=== PATIENT | female | born 1990 | race Caucasian/White ===

== ENCOUNTER 2017-09-28 13:15 | Inpatient (IN) | payer BC ==
[2017-09-28] MEDS ORDERED: Sodium Chloride 0.9% 100 ML ONE (13:32)
[2017-09-28] MEDS: Lactated Ringers 1,000 ML IV SCH ×3 (13:40→15:18)
[2017-09-28] MEDS ORDERED: fentaNYL 100 MCG/2 ML SDV EPIDUR PRN (13:56)
[2017-09-28] MEDS ORDERED: diphenhydrAMINE 50 MG/ML SDV IVPUSH PRN (13:56)
[2017-09-28] MEDS ORDERED: ePHEDrine 50 MG/ML SDV IVPUSH PRN (13:56)
[2017-09-28] MEDS ORDERED: Bupivacaine/fentaNYL/NS 100 ML Bag EPIDUR SCH (14:00)
[2017-09-28] MEDS ORDERED: Nalbuphine 20 MG/1 ML Amp IVPUSH PRN (14:02)
[2017-09-28] MEDS ORDERED: Sodium Chloride 0.9% 10 ML Syringe FLUSH PRN (14:02)
[2017-09-28] MEDS ORDERED: Lidocaine 1% 50 ML MDV INJECT ONE (14:02)
--- NOTE | 2017-09-28 14:13 | PCM.LDHP ---
L&D History of Present Illness - General Date of Service: 09/28/17 Admit Problem/Dx: Patient Status Order with Admit Dx/Problem 09/28/17 14:02 Patient Status [ADT] Routine Admission Diagnosis/Problem Admission Diagnosis/Problem Normal 09/28/17 14:06 38-6/7 week IUP, active labor, advanced cervical dilation of 7 cm. Source of Information: Patient History Limitations: Reports: No Limitations - History of Present Illness Introduction:: Latonia is a 27-year-old 1 para 0 white female is admitted in active labor with contractions occurring every 3-4 minutes. JOSEY is 10/06/2017 placer presently at 38-6/7 weeks gestational age. JOSEY is determined by an ultrasound done at 8-2/7 weeks on 02/26/2017 and supported by another ultrasound done on 06/08. Patient started having contractions processing at 1030 hrs. today and progressed to the frequency stated above. They're very intense. Cervix is 7 cm, 90% effaced, -2 station, mid position, bulging bag of kirk, cephalic presentation, very soft. She is group B strep positive and IV has been started, antibiotics are initiated. MANAGER PACU history: 1 para 0, JOSEY 10/06/2017. Patient's had a relatively unremarkable course. Her first visit was on 02/26/2017 at 8-2/7 weeks gestational age. She was seen on a regular basis throughout the program and was a participant in the centering program for weight gain was from 152 pounds up to 172.6 pounds. Vital signs were stable throughout the course and fundal height growth was appropriate. Patient group B strep positive culture results and urine. Her 's blood is O+. Patient's blood is A-. She was a RhoGAM candidate received RhoGAM on 07/16/2017. She is hypothyroid and has been on thyroid replacement throughout , and is clinically euthyroid at this time. laboratory testing shows blood to be A- with a negative antibody screen. First hemoglobin is 12.5 g or deciliter. Platelets 177,000. Pap smear was normal. Rubella titer shows immunity. RPR is nonreactive. Committee and gonorrhea assays were both negative. Her TSH at first visit was 1.443 mU/L. This is normal limits. Her second trimester labs showed hemoglobin 12.7 and platelet count 153,000. Diabetic screening test was normal at 76. Allergies: 1. Bee stings which cause swelling 2. Patient is lactose intolerant. 3. Gluten intolerance 4. No known drug allergies. Medications: 1. Levothyroxine sodium 75 g daily 2. vitamins daily Past medical history: 1. Lactose intolerant, gluten intolerant. Past surgical history: 1. Tonsillectomy 2012. 2. Oral surgery 2006. Family history: Mother and father are alive and well. One brother with allergies. Maternal grandmother is alive and well. Maternal grandfather is alive with some heart disease. Paternal grandmother with heart disease and rheumatoid arthritis. Paternal grandfather alive and well but has had prostate cancer. No bleeding, clotting, or anesthesia problems noted in the family. View of systems: Skin: Negative Cardiovascular: No chest pain or exercise tolerance Respiratory: No shortness of breath or infectious symptoms Breasts: Changes associated with only. Patient plans to nurse. GI: Negative : Changes cystic-appearing C, labor pains as described above Musculoskeletal: Occasional edema Neurological: Negative Physical exam: Gen. patient is well-developed well-nourished, pleasant female stated age in no acute distress other than contraction discomfort. Skin is warm dry without lesions. HEENT, neck and back the normal limits. Lungs are clear with good breath sounds in all lung spence. Cardiovascular exam shows regular rate and rhythm without murmurs. Breast exam is deferred at this time. First visit and found to be normal. Abdomen is protuberant with fundal height 39 cm, baby in vertex presentation by Mark murmurs. The paracervical exam as above Extremities and neurological exam grossly within normal limits. - Related Data Allergies/Adverse Reactions: Allergies Allergy/AdvReac Type Severity Reaction Status Date / Time lactose AdvReac Stomach Verified 09/28/17 13:57 Ache Home Medications: Home Meds Biotin 1 mg PO DAILY 09/23/14 [History] Levothyroxine Sodium [Levothyroxine Sodium] 75 mcg PO DAILY 09/23/14 [History] Multivitamin [Multi Vitamin Daily] 1 tab PO DAILY 09/23/14 [History] Norethindrone-Ethinyl Estrad [Cyclafem 1-35-28 Tablet] 1 tab PO BEDTIME [History] Hydrocodone/Acetaminophen [Hydrocodone-Acetaminophen Soln] 15 - 30 ml PO Q4H PRN #480 solution 09/25/14 [Rx] Social & Family History - Tobacco Use Smoking Status *Q: Never Smoker Second Hand Smoke Exposure: No - Alcohol Use Days Per Week of Alcohol Use: 0 Number of Drinks Per Day: 0 Total Drinks Per Week: 0 - Recreational Drug Use Recreational Drug Use: No Drug Use in Last 12 Months: No H&P Review of Systems - Review of Systems: Review Of Systems: See Below L&D Exam - Exam Exam: See Below - Patient Data Lab Results Last 24 hrs: Laboratory Results - last 24 hr 09/28/17 Range/Units 13:40 WBC 19.83 H (3.98-10.04) K/mm3 RBC 3.99 (3.98-5.22) M/mm3 Hgb 13.2 (11.2-15.7) gm/L Hct 37.5 (34.1-44.9) % MCV 94.0 (79.4-94.8) fl MCH 33.1 H (25.6-32.2) pg MCHC 35.2 (32.2-35.5) g/dl RDW Std Deviation 44.0 (36.4-46.3) fL Plt Count 200 (182-369) K/mm3 MPV 10.6 (9.4-12.3) fl Neut % (Auto) 82.5 H (34.0-71.1) % Lymph % (Auto) 10.1 L (19.3-51.7) % [place] % (Auto) 6.6 (4.7-12.5) % Eos % (Auto) 0.1 L (0.7-5.8) Baso % (Auto) 0.1 (0.1-1.2) % Neut # (Auto) 16.38 H (1.56-6.13) K/mm3 Lymph # (Auto) 2.01 (1.18-3.74) K/mm3 [place] # (Auto) 1.31 H (0.24-0.36) K/mm3 Eos # (Auto) 0.01 L (0.04-0.36) K/mm3 Baso # (Auto) 0.01 (0.01-0.08) K/mm3 Result Diagrams: 09/28/17 13:40 Problem List Initiated/Reviewed/Updated: Yes Orders Last 24hrs: Active Orders 24 hr Category Date Time Status Patient Status [ADT] Routine ADT 09/28/17 14:02 Ordered Activity as Tolerated [RC] PFP Care 09/28/17 14:02 Ordered Communication Order [RC] ASDIRECTED Care 09/28/17 14:02 Ordered Heart Tones [RC] ASDIRECTED Care 09/28/17 14:03 Ordered Notify Provider [RC] ASDIRECTED Care 09/28/17 13:56 Active Notify Provider [RC] PFP Care 09/28/17 14:02 Ordered Notify Provider [RC] PRN Care 09/28/17 14:02 Ordered Peripheral IV Care [RC] . DIRECTED Care 09/28/17 14:03 Ordered Pump Management, Intrathecal [RC] ASDIRECTED Care 09/28/17 14:03 Ordered Vital Signs [RC] PER UNIT ROUTINE Care 09/28/17 14:02 Ordered Regular Diet [DIET] Diet 09/28/17 Lunch Ordered CBC WITH AUTO DIFF [HEME] Stat Lab 09/28/17 13:40 Results Ampicillin 1 gm Med 09/28/17 14:15 Ordered Sodium Chloride 0.9% [Normal Saline] 100 ml IV Q4H Ampicillin 2 gm Med 09/28/17 14:02 Ordered Sodium Chloride 0.9% [Normal Saline] 100 ml IV ONETIME Bupivacaine/fentaNYL/NS [fentaNYL/Bupivacaine/NS 2 MCG- Med 09/28/17 14:00 Ordered 0.125% 100 ML] 100 ml EPIDUR ASDIRECTED Lactated Ringers [Ringers, Lactated] 1,000 ml Med 09/28/17 14:15 Ordered IV ASDIRECTED Levothyroxine Med 09/29/17 09:00 Ordered 75 mcg PO DAILY Lidocaine 1% [Xylocaine 1%] Med 09/28/17 14:02 Once 10 ml INJECT ONETIME ONE Nalbuphine [Nubain] Med 09/28/17 14:02 Ordered 10 mg IVPUSH Q2H PRN Sodium Chloride 0.9% [Saline Flush] Med 09/28/17 14:02 Ordered 10 ml FLUSH ASDIRECTED PRN diphenhydrAMINE [Benadryl] Med 09/28/17 13:56 Ordered 25 mg IVPUSH Q6H PRN ePHEDrine [ePHEDrine Sulfate] Med 09/28/17 13:56 Ordered 5 mg IVPUSH ASDIRECTED PRN fentaNYL [Sublimaze] Med 09/28/17 13:56 Ordered 100 mcg EPIDUR Q3H PRN Electronic Heart Tones Ext w TOCO [WOMSER] Oth 09/28/17 14:02 Ordered Routine Electronic Heart Tones Internal [WOMSER] Per Unit Oth 09/28/17 14:02 Ordered Routine Peripheral IV Insertion Adult [OM.PC] Routine Oth 09/28/17 14:02 Ordered Resuscitation Status Routine Resus Stat 09/28/17 14:02 Ordered Medication Orders Diphenhydramine HCl (Benadryl) 25 mg IVPUSH Q6H PRN PRN Reason: pruritis Ephedrine Sulfate (Ephedrine Sulfate) 5 mg IVPUSH ASDIRECTED PRN PRN Reason: Hypotension Fentanyl (Sublimaze) 100 mcg EPIDUR Q3H PRN PRN Reason: Pain Fentanyl/Bupivacaine HCl (Fentanyl/Bupivacaine/Ns 2 Mcg-0.125% 100 Ml) 100 ml EPIDUR ASDIRECTED YOSSI Levothyroxine Sodium (Levothyroxine) 75 mcg PO DAILY YOSSI Assessment/Plan Comment:: Assessment: 1. 38-6/7 week intrauterine , active labor with advanced cervical dilation. 2. Group B strep screen positive. Antibiotics have been ordered 3. Patient desires epidural in labor and delivery 4. Patient plans to breast-feed 5. Patient is hypothyroid but is presently on levothyroxine and clinically euthyroid with normal labs during the . Plan: 1. Anticipate normal spontaneous vaginal delivery. 2. Epidural when necessary 3. CBC 4. Support breast-feeding plans.
--- NOTE | 2017-09-28 14:23 | PCM.PREANE ---
Preanesthetic Assessment - Anesthesia/Transfusion/Family Hx Anesthesia History: Prior Anesthesia Without Reaction Family History of Anesthesia Reaction: No Transfusion History: No Prior Transfusion(s) - Review of Systems General: No Symptoms Pulmonary: No Symptoms, Cough (sick over anneliese) Cardiovascular: No Symptoms Gastrointestinal: No Symptoms Neurological: No Symptoms Other: Reports: Thyroid Problems - Physical Assessment Pulse: 71 O2 Sat by Pulse Oximetry: 99 Respiratory Rate: 16 Blood Pressure: 116/75 Height: 5 ft 9 in Weight: 78.653 kg ASA Class: 2 Mental Status: Alert & Oriented x3 Airway Class: Mallampati = 1 Dentition: Reports: Normal Dentition Thyro-Mental Finger Breadths: 3 Mouth Opening Finger Breadths: 3 ROM/Head Extension: Full Lungs: Clear to Auscultation, Normal Respiratory Effort Cardiovascular: Regular Rate, Regular Rhythm - Lab Values: Laboratory Last Values WBC 19.83 K/mm3 (3.98-10.04) H 09/28/17 13:40 RBC 3.99 M/mm3 (3.98-5.22) 09/28/17 13:40 Hgb 13.2 gm/L (11.2-15.7) 09/28/17 13:40 Hct 37.5 % (34.1-44.9) 09/28/17 13:40 MCV 94.0 fl (79.4-94.8) 09/28/17 13:40 MCH 33.1 pg (25.6-32.2) H 09/28/17 13:40 MCHC 35.2 g/dl (32.2-35.5) 09/28/17 13:40 RDW Std Deviation 44.0 fL (36.4-46.3) 09/28/17 13:40 Plt Count 200 K/mm3 (182-369) 09/28/17 13:40 MPV 10.6 fl (9.4-12.3) 09/28/17 13:40 Neut % (Auto) 82.5 % (34.0-71.1) H 09/28/17 13:40 Lymph % (Auto) 10.1 % (19.3-51.7) L 09/28/17 13:40 [place] % (Auto) 6.6 % (4.7-12.5) 09/28/17 13:40 Eos % (Auto) 0.1 (0.7-5.8) L 09/28/17 13:40 Baso % (Auto) 0.1 % (0.1-1.2) 09/28/17 13:40 Neut # (Auto) 16.38 K/mm3 (1.56-6.13) H 09/28/17 13:40 Lymph # (Auto) 2.01 K/mm3 (1.18-3.74) 09/28/17 13:40 [place] # (Auto) 1.31 K/mm3 (0.24-0.36) H 09/28/17 13:40 Eos # (Auto) 0.01 K/mm3 (0.04-0.36) L 09/28/17 13:40 Baso # (Auto) 0.01 K/mm3 (0.01-0.08) 09/28/17 13:40 - Allergies Allergies/Adverse Reactions: Allergies Allergy/AdvReac Type Severity Reaction Status Date / Time lactose AdvReac Stomach Verified 09/28/17 13:57 Ache - Blood Blood Available: No - Acknowledgements Anesthesia Type Planned: Epidural Pt an Appropriate Candidate for the Planned Anesthesia: Yes Alternatives and Risks of Anesthesia Discussed w Pt/Guardian: Yes Pt/Guardian Understands and Agrees with Anesthesia Plan: Yes PreAnesthesia Questionnaire Cardiovascular History: Reports: None Respiratory History: Reports: None Gastrointestinal History: Reports: None : 1 (38.6) Para: 0 Oncologic (Cancer) History: Reports: None - Past Surgical History HEENT Surgical History: Reports: Oral Surgery, Tonsillectomy - SUBSTANCE USE Smoking Status *Q: Never Smoker Tobacco Use Within Last Twelve Months: No Second Hand Smoke Exposure: No Days Per Week of Alcohol Use: 0 Number of Drinks Per Day: 0 Total Drinks Per Week: 0 Recreational Drug Use History: No - HOME MEDS Home Medications: Home Meds Biotin 1 mg PO DAILY 09/23/14 [History] Levothyroxine Sodium [Levothyroxine Sodium] 75 mcg PO DAILY 09/23/14 [History] Multivitamin [Multi Vitamin Daily] 1 tab PO DAILY 09/23/14 [History] Norethindrone-Ethinyl Estrad [Cyclafem 1-35-28 Tablet] 1 tab PO BEDTIME [History] Hydrocodone/Acetaminophen [Hydrocodone-Acetaminophen Soln] 15 - 30 ml PO Q4H PRN #480 solution 09/25/14 [Rx] - CURRENT (IN HOUSE) MEDS Current Meds: Current Medications Diphenhydramine HCl (Benadryl) 25 mg IVPUSH Q6H PRN PRN Reason: pruritis Ephedrine Sulfate (Ephedrine Sulfate) 5 mg IVPUSH ASDIRECTED PRN PRN Reason: Hypotension Fentanyl (Sublimaze) 100 mcg EPIDUR Q3H PRN PRN Reason: Pain Fentanyl/Bupivacaine HCl (Fentanyl/Bupivacaine/Ns 2 Mcg-0.125% 100 Ml) 100 ml EPIDUR ASDIRECTED YOSSI Ampicillin Sodium 2 gm/ Sodium (Chloride) 100 mls @ 200 mls/hr IV ONETIME ONE Stop: 09/28/17 14:31 Ampicillin Sodium 1 gm/ Sodium (Chloride) 100 mls @ 200 mls/hr IV Q4H YOSSI Lactated Ringer's (Ringers, Lactated) 1,000 mls @ 100 mls/hr IV ASDIRECTED YOSSI Levothyroxine Sodium (Levothyroxine) 75 mcg PO DAILY YOSSI Lidocaine HCl (Xylocaine 1%) 10 ml INJECT ONETIME ONE Stop: 09/28/17 14:03 Nalbuphine HCl (Nubain) 10 mg IVPUSH Q2H PRN PRN Reason: Pain (moderate 4-6) Sodium Chloride (Saline Flush) 10 ml FLUSH ASDIRECTED PRN PRN Reason: Keep Vein Open Discontinued Medications Sodium Chloride (Normal Saline) Confirm Administered Dose 100 mls @ as directed .ROUTE .STK-MED ONE Stop: 09/28/17 13:33
[2017-09-28] MEDS ORDERED: Ampicillin 2 GM in Sodium Chloride 0.9% 100 ML IV ONE (14:30)
[2017-09-28] MEDS ORDERED: Oxytocin/Lactated Ringers 10 UNIT/1,000 ML BAG IV ONE ×2 (15:03→15:04)
[2017-09-28] MEDS: Ampicillin 1 GM in Sodium Chloride 0.9% 100 ML IV SCH ×2 (17:12→19:46)
--- NOTE | 2017-09-28 19:27 | PCM.SN ---
- Free Text/Narrative Note: Latonia is a 27 y/o white female who was admitted on the afternoon of 09/28/17 for active labor. She progressed quickly to complete dx dilation. She delivered a 3460 gm (7# 10 oz) male at 1817 hours. Lenth was 21.5 inches and scores were 8/9. The baby delivered in a OP position via vacuum extraction assistance due to severe variable FHR decelerations. She had a second degree laceration with was repaired with 3-0 monocryl suture. Epidural was used for analgesia in labor and for anesthesia for the laceration repair. Cord blood was collected The placenta delivered in a Ortega presentation, intact and complete. It was discarded per patient choice. EBL:100 cc. Condition: good. Patient is .
[2017-09-28] MEDS ORDERED: Lanolin 100% Cream 7 GM Tube TOP PRN (19:39)
[2017-09-28] MEDS ORDERED: Benzocaine/Menthol 20%-0.5% Spray 56 GM Canister TOP PRN (19:39)
[2017-09-28] MEDS ORDERED: Witch Hazel Medicated Pads 100/Jar TOP PRN (19:39)
[2017-09-28] MEDS ORDERED: Acetaminophen 325 MG Tab PO PRN (19:39)
[2017-09-28] MEDS ORDERED: Docusate Sodium 100 MG Cap PO PRN (19:39)
[2017-09-28] MEDS ORDERED: Oxytocin/Lactated Ringers 10 UNIT/1,000 ML BAG IV SCH (20:00)
[2017-09-28] MEDS ORDERED: Bupivacaine 0.25% 10 ML SDV ONE (22:22)
[2017-09-29] MEDS: Ibuprofen 600 MG Tab PO PRN ×4 (00:36→19:13)
[2017-09-29] MEDS: Levothyroxine 75 MCG Tab PO SCH (06:48)
[2017-09-29] MEDS: Prenatal Multivitamin with Calcium/Folic Acid/Iron Tab PO SCH (09:09)
--- NOTE | 2017-09-29 09:50 | PCM.SN ---
- Free Text/Narrative Note: Postterm day one: Patient is ambulating well, has minimal lochia, is nursing without concerns. She is voided well. Patient is afebrile, vital signs stable. Abdomen is soft, nontender with uterus at umbilicus and nontender. Extremities show trace edema bilaterally in lower extremities but no signs of DVT. Hemoglobin, platelets and white blood count are within normal limits for the period Assessment/plan: Post day 1 normal recovery. Patient doing well. Home tomorrow.
[2017-09-30] MEDS: Ibuprofen 600 MG Tab PO PRN (06:59)
[2017-09-30] MEDS: Levothyroxine 75 MCG Tab PO SCH (10:03)
[2017-09-30] MEDS: Prenatal Multivitamin with Calcium/Folic Acid/Iron Tab PO SCH (10:05)
--- NOTE | 2017-09-30 11:04 | PCM.DCSUM1 ---
Discharge Summary - Hospital Course Free Text/Narrative:: Latonia is a 27 y/o white female who was admitted on the afternoon of 09/28/17 for active labor. She progressed quickly to complete dx dilation. She delivered a 3460 gm (7# 10 oz) male infant at 1817 hours. Lenth was 21.5 inches and scores were 8/9. The baby delivered in a OP position via vacuum extraction assistance due to severe variable FHR decelerations. She had a second degree laceration with was repaired with 3-0 monocryl suture. Epidural was used for analgesia in labor and for anesthesia for the laceration repair. Cord blood was collected The placenta delivered in a Ortega presentation, intact and complete. It was discarded per patient choice. EBL:100 cc. Condition: good. Patient is . Postterm patient is done very well. She is voiding without concerns. She is ambulating well and nursing without problems. Her vital signs stable. Lochia is minimal. She is desiring to be discharged home. - Discharge Data Discharge Date: 09/30/17 Discharge Disposition: Home, Self-Care 01 Condition: Good - Patient Instructions Diet: Regular Diet as Tolerated (High-fiber, nursing diet with increased calories and calcium as recommended.) Activity: As Tolerated (No intercourse or tampons until bleeding resolves.) Driving: May Drive Today Showering/Bathing: May Shower Showering/Bathing, Other: May take a bath Notify Provider of: Fever, Increased Pain, Swelling and Redness, Nausea and/or Vomiting - Discharge Plan Home Medications: Home Meds Levothyroxine Sodium 1 tab PO DAILY 09/23/14 [History] Ibuprofen [IJD: Ibuprofen] 600 mg PO Q4H PRN tablet 09/30/17 [Rx] Vit with Ca/FA/Iron [ Plus Iron] 1 each PO DAILY tablet [Rx] Yamil Barnes [Tucks] 1 pad TOP ASDIRECTED PRN pad 09/30/17 [Rx] Patient Handouts: Home Care Instructions for Mom, Challenges and Solutions Referrals: Jim Viramontes MD [Primary Care Provider] - (follow up with Dr Viramontes in 2 weeks. Please call for appointments. ) - Discharge Summary/Plan Comment DC Time >30 min.: No Discharge Summary/Plan Comment: Discharge instructions: 1. Discharge home 2. Diet, activity and follow-up discussed with patient. Recommend nursing diet with increased calories and calcium. 3. Precautions given concern increased pain, bleeding, temperature, signs/ symptoms of DVT/PE. 4. Medications per home medication was printed, discussed with and given to the patient. 5. Return to clinic-Dr. Viramontes[facility] in 2 weeks. Diagnosis: Term -delivered Condition: Good - Patient Data Vitals - Most Recent: Last Vital Signs Temp 36.4 C 09/30/17 00:56 Pulse 91 09/30/17 00:56 Resp 18 09/30/17 00:56 BP 105/68 09/30/17 00:56 Pulse Ox 98 09/30/17 00:56 Weight - Most Recent: 78.653 kg I&O - Last 24 hours: Intake & Output 09/29/17 09/30/17 09/30/17 22:59 06:59 14:59 Intake Total 120 Balance 120 Med Orders - Current: Current Medications Acetaminophen (Tylenol) 650 mg PO Q4H PRN PRN Reason: mild pain or fever Benzocaine/Menthol (Dermoplast Pain Relief [place]) 0 gm TOP ASDIRECTED PRN PRN Reason: Perineal Comfort Measure Last Admin: 09/29/17 00:51 Dose: 1 canister Docusate Sodium (Colace) 100 mg PO BID PRN PRN Reason: Constipation Emollient Ointment (Lansinoh Hpa) 0 gm TOP ASDIRECTED PRN PRN Reason: Sore Nipples Last Admin: 09/30/17 10:17 Dose: 1 tube Oxytocin/Lactated Ringer's (Pitocin In Lr 10 Units/1,000 Ml) 10 unit in 1,000 mls @ 3,000 mls/hr IV ASDIRECTED YOSSI; 500 MUNITS/MIN PRN Reason: Protocol Ibuprofen (Motrin) 600 mg PO Q4H PRN PRN Reason: Mild pain or fever Last Admin: 09/30/17 06:59 Dose: 600 mg Levothyroxine Sodium (Levothyroxine) 75 mcg PO ACBREAKFAST [facility] Last Admin: 09/30/17 10:03 Dose: Not Given Prenat Multivit/[place]/Iron/Folic Ac ( Plus Iron) 1 each PO DAILY [facility] Last Admin: 09/30/17 10:05 Dose: Not Given Witch Molly (Tucks) 1 pad TOP ASDIRECTED PRN PRN Reason: Hemorrhoid pain Last Admin: 09/29/17 00:51 Dose: 1 canister Discontinued Medications Diphenhydramine HCl (Benadryl) 25 mg IVPUSH Q6H PRN PRN Reason: pruritis Ephedrine Sulfate (Ephedrine Sulfate) 5 mg IVPUSH ASDIRECTED PRN PRN Reason: Hypotension Fentanyl (Sublimaze) 100 mcg EPIDUR Q3H PRN PRN Reason: Pain Last Admin: 09/28/17 14:26 Dose: 100 mcg Fentanyl/Bupivacaine HCl (Fentanyl/Bupivacaine/Ns 2 Mcg-0.125% 100 Ml) 100 ml EPIDUR ASDIRECTED [facility] Last Admin: 09/28/17 14:24 Dose: 100 ml Sodium Chloride (Normal Saline) Confirm Administered Dose 100 mls @ as directed .ROUTE .STK-MED ONE Stop: 09/28/17 13:33 Last Admin: 09/28/17 16:35 Dose: Not Given Ampicillin Sodium 2 gm/ Sodium (Chloride) 100 mls @ 200 mls/hr IV ONETIME ONE Stop: 09/28/17 14:59 Last Admin: 09/28/17 13:40 Dose: 200 mls/hr Ampicillin Sodium 1 gm/ Sodium (Chloride) 100 mls @ 200 mls/hr IV Q4H [facility] Last Admin: 09/28/17 19:46 Dose: Not Given Lactated Ringer's (Ringers, Lactated) 1,000 mls @ 100 mls/hr IV ASDIRECTED [facility] Last Admin: 09/28/17 15:18 Dose: 500 mls/hr Oxytocin/Lactated Ringer's (Pitocin In Lr 10 Units/1,000 Ml) Confirm Administered Dose 10 unit in 1,000 mls @ as directed IV .STK-MED ONE Stop: 09/28/17 15:04 Last Admin: 09/28/17 16:35 Dose: Not Given Oxytocin/Lactated Ringer's (Pitocin In Lr 10 Units/1,000 Ml) Confirm Administered Dose 10 unit in 1,000 mls @ as directed IV .STK-MED ONE Stop: 09/28/17 15:05 Last Admin: 09/29/17 01:51 Dose: Not Given Lidocaine HCl (Xylocaine 1%) 10 ml INJECT ONETIME ONE Stop: 09/28/17 14:03 Last Admin: 09/28/17 19:46 Dose: Not Given Nalbuphine HCl (Nubain) 10 mg IVPUSH Q2H PRN PRN Reason: Pain (moderate 4-6) Sodium Chloride (Saline Flush) 10 ml FLUSH ASDIRECTED PRN PRN Reason: Keep Vein Open *Q Meaningful Use (DIS) - VTE *Q VTE Criteria *Q: - Stroke *Q Stroke Criteria *Q: - AMI *Q AMI Criteria *Q:
== END 2017-09-30 17:00 | disposition home or self-care (01) | DRG 560 ==
LOC: JD.OB 13:15 → JD.OBCHECK 13:15 → JD.OB 14:02 → OBSVTOIN 18:17
PROVIDERS: ADMIT Obstetrics & Gynecology; ATTEND Obstetrics & Gynecology
PROC: 10D07Z6 Extraction of Products of Conception, Vacuum, Via Natural or Artificial Opening (ICD-10-PCS; principal; 2017-09-28)
PROC: 0KQM0ZZ Repair Perineum Muscle, Open Approach (ICD-10-PCS; 2017-09-28)
PROC: 10907ZC Drainage of Amniotic Fluid, Therapeutic from Products of Conception, Via Natural or Artificial Opening (ICD-10-PCS; 2017-09-28)
PROC: 00HU33Z Insertion of Infusion Device into Spinal Canal, Percutaneous Approach (ICD-10-PCS; 2017-09-28)
PROC: 3E0R3BZ Introduction of Anesthetic Agent into Spinal Canal, Percutaneous Approach (ICD-10-PCS; 2017-09-28)
DX: O99.284 Endocrine, nutritional and metabolic diseases complicating childbirth (principal); E03.9 Hypothyroidism, unspecified; O99.824 Streptococcus B carrier state complicating childbirth; Z3A.39 39 weeks gestation of pregnancy; Z37.0 Single live birth; Z91.030 Bee allergy status; Z91.02 Food additives allergy status; Z91.011 Allergy to milk products; Z79.899 Other long term (current) drug therapy; O70.1 Second degree perineal laceration during delivery; O69.81X0 Labor and delivery complicated by cord around neck, without compression, not applicable or unspecified
CPT/HCPCS: 36415; 51701; 59300; 59409; 85025; 85027; 85461; 86850; 86900; 86901; A9270-GY; J0290; J2790; J3010; J7030; J7120

== ENCOUNTER 2020-02-05 08:23 | Inpatient (IN) | payer BC ==
[~2020-02-05 08:23] MED LIST: Bupivacaine 0.25% 10 ML SDV ONE
[2020-02-05] MEDS ORDERED: Lidocaine 1% 50 ML MDV INJECT ONE (08:30)
[2020-02-05] MEDS ORDERED: Oxytocin/Lactated Ringers 10 UNIT/1,000 ML BAG IV SCH ×2 (08:30→12:30)
[2020-02-05] MEDS ORDERED: Sodium Chloride 0.9% 10 ML Syringe FLUSH PRN (08:30)
[2020-02-05] MEDS ORDERED: Ondansetron 4 MG/2 ML SDV IVPUSH PRN (08:30)
[2020-02-05] MEDS ORDERED: Nalbuphine 10 MG/ML Syringe IVPUSH PRN (08:30)
[2020-02-05] MEDS ORDERED: Metoclopramide 10 MG/2 ML SDV IVPUSH ONE (08:36)
[2020-02-05] MEDS ORDERED: Citric Acid/Sodium Citrate Solution 30 ML Cup PO ONE (08:36)
[2020-02-05] MEDS: Lactated Ringers 1,000 ML IV SCH ×3 (08:54→11:38)
[2020-02-05] MEDS ORDERED: ePHEDrine 50 MG/ML SDV IVPUSH PRN (09:32)
[2020-02-05] MEDS ORDERED: fentaNYL 100 MCG/2 ML SDV EPIDUR PRN (09:32)
[2020-02-05] MEDS ORDERED: diphenhydrAMINE 50 MG/ML SDV IVPUSH PRN (09:32)
[2020-02-05] MEDS ORDERED: Bupivacaine/fentaNYL/NS 100 ML Bag EPIDUR PRN (09:32)
--- NOTE | 2020-02-05 10:09 | PCM.PREANE ---
Preanesthetic Assessment - Procedure Proposed Procedure: epidural - Anesthesia/Transfusion/Family Hx Anesthesia History: Prior Anesthesia Without Reaction Family History of Anesthesia Reaction: No Transfusion History: No Prior Transfusion(s) - Review of Systems General: No Symptoms Pulmonary: No Symptoms Cardiovascular: No Symptoms Gastrointestinal: Abdominal Pain (labor) Neurological: No Symptoms Other: Reports: None - Physical Assessment Vital Signs: Last Vital Signs Temp 37.3 C 02/05/20 08:30 Pulse 88 02/05/20 08:30 Resp 16 02/05/20 08:30 BP 125/87 02/05/20 08:30 Pulse Ox 99 02/05/20 08:30 Height: 1.73 m Weight: 83.416 kg ASA Class: 2 Mental Status: Alert & Oriented x3 Airway Class: Mallampati = 1 Dentition: Reports: Normal Dentition Thyro-Mental Finger Breadths: 3 Mouth Opening Finger Breadths: 3 ROM/Head Extension: Full Lungs: Clear to Auscultation, Normal Respiratory Effort Cardiovascular: Regular Rate, Regular Rhythm - Lab Values: Laboratory Last Values WBC 9.85 K/mm3 (3.98-10.04) 02/05/20 08:50 RBC 4.12 M/mm3 (3.98-5.22) 02/05/20 08:50 Hgb 13.2 gm/dl (11.2-15.7) 02/05/20 08:50 Hct 38.8 % (34.1-44.9) 02/05/20 08:50 MCV 94.2 fl (79.4-94.8) 02/05/20 08:50 MCH 32.0 pg (25.6-32.2) 02/05/20 08:50 MCHC 34.0 g/dl (32.2-35.5) 02/05/20 08:50 RDW Std Deviation 46.5 fL (36.4-46.3) H 02/05/20 08:50 Plt Count 193 K/mm3 (182-369) 02/05/20 08:50 MPV 11.4 fl (9.4-12.3) 02/05/20 08:50 Neut % (Auto) 66.0 % (34.0-71.1) 02/05/20 08:50 Lymph % (Auto) 25.7 % (19.3-51.7) 02/05/20 08:50 [place] % (Auto) 7.1 % (4.7-12.5) 02/05/20 08:50 Eos % (Auto) 0.5 (0.7-5.8) L 02/05/20 08:50 Baso % (Auto) 0.2 % (0.1-1.2) 02/05/20 08:50 Neut # (Auto) 6.50 K/mm3 (1.56-6.13) H 02/05/20 08:50 Lymph # (Auto) 2.53 K/mm3 (1.18-3.74) 02/05/20 08:50 [place] # (Auto) 0.70 K/mm3 (0.24-0.36) H 02/05/20 08:50 Eos # (Auto) 0.05 K/mm3 (0.04-0.36) 02/05/20 08:50 Baso # (Auto) 0.02 K/mm3 (0.01-0.08) 02/05/20 08:50 Blood Type A NEGATIVE 02/05/20 08:50 Gel Antibody Screen Positive 02/05/20 08:50 - Allergies Allergies/Adverse Reactions: Allergies Allergy/AdvReac Type Severity Reaction Status Date / Time gluten Allergy Stomach Verified 02/05/20 08:30 Upset lactose AdvReac Stomach Verified 02/05/20 08:30 Ache - Anesthesia Plan Pre-Op Medication Ordered: None - Acknowledgements Anesthesia Type Planned: Epidural Pt an Appropriate Candidate for the Planned Anesthesia: Yes Alternatives and Risks of Anesthesia Discussed w Pt/Guardian: Yes Pt/Guardian Understands and Agrees with Anesthesia Plan: Yes PreAnesthesia Questionnaire Cardiovascular History: Reports: None Respiratory History: Reports: None Gastrointestinal History: Reports: None, 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: Endocrine/Metabolic History: Reports: Hypothyroidism Oncologic (Cancer) History: Reports: None - Past Surgical History HEENT Surgical History: Reports: Oral Surgery, Tonsillectomy - SUBSTANCE USE Smoking Status *Q: Never Smoker Second Hand Smoke Exposure: No Recreational Drug Use History: No - HOME MEDS Home Medications: Home Meds Calcium Carbonate [Calcium] 500 mg PO DAILY 02/05/20 [History] Folic Acid 1 ng PO DAILY 02/05/20 [History] Levothyroxine [Synthroid] 50 mcg PO DAILY 02/05/20 [History] Prenat 115/Iron Fum/Folic/Dss [ 19 Tablet] 1 tab PO DAILY 02/05/20 [ History] - CURRENT (IN HOUSE) MEDS Current Meds: Current Medications Diphenhydramine HCl (Benadryl) 25 mg IVPUSH Q6H PRN PRN Reason: Itching Ephedrine Sulfate (Ephedrine Sulfate) 5 mg IVPUSH ASDIRECTED PRN PRN Reason: HYPOTENTSION Fentanyl (Sublimaze) 100 mcg EPIDUR Q3H PRN PRN Reason: Pain Fentanyl/Bupivacaine HCl (Fentanyl/Bupivacaine/Ns 2 Mcg-0.125% 100 Ml) 100 ml EPIDUR CONTINUOUS PRN PRN Reason: Pain Lactated Ringer's (Ringers, Lactated) 1,000 mls @ 100 mls/hr IV ASDIRECTED YOSSI Last Admin: 02/05/20 08:54 Dose: 100 mls/hr Oxytocin/Lactated Ringer's (Pitocin In Lr 10 Units/1,000 Ml) 10 unit in 1,000 mls @ 500 mls/hr IV .CONTINUOUS YOSSI Nalbuphine HCl (Nubain) 10 mg IVPUSH Q2H PRN PRN Reason: Pain Ondansetron HCl (Zofran) 4 mg IVPUSH Q4H PRN PRN Reason: Nausea/Vomiting Sodium Chloride (Saline Flush) 10 ml FLUSH ASDIRECTED PRN PRN Reason: Keep Vein Open Discontinued Medications Citric Acid/Sodium Citrate (Bicitra Solution) 30 ml PO ONETIME ONE Stop: 02/05/20 08:37 Lidocaine HCl (Xylocaine 1%) 50 ml INJECT ONETIME ONE Stop: 02/05/20 08:31 Metoclopramide HCl (Reglan) 10 mg IVPUSH ONETIME ONE Stop: 02/05/20 08:37
--- NOTE | 2020-02-05 10:35 | PCM.LDHP ---
L&D History of Present Illness - General Date of Service: 02/05/20 Admit Problem/Dx: Patient Status Order with Admit Dx/Problem 02/05/20 08:30 Patient Status [ADT] Routine Admission Diagnosis/Problem Admission Diagnosis/Problem Twin 02/05/20 10:20 Latonia is a 29-year-old 4 para 1021 white female at 36 and 47 weeks gestational age with an JOSEY of 02/29/2020 who is admitted with a dichorionic, diamniotic twin gestation, contractions and advanced cervical dilation of 7 cm. Source of Information: Patient History Limitations: Reports: No Limitations - History of Present Illness Introduction:: Latonia is a 29-year-old 4 para 1021 white female at 36 and 47 weeks gestational age with an JOSEY of 02/29/2020 who is admitted with a dichorionic, diamniotic twin gestation, contractions and advanced cervical dilation of 7 cm. Patient was seen in clinic today, had reported decreased activity. She was evaluated with electronic monitoring which showed a reactive NST, negative BALLOON DIPPER and contractions that were coming every 3-4 minutes. 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 Her menarche was at age 14, cycles every month. Not using any control at the time conception. First a last menstrual period was certain and was on 05/25/2019. Patient has had one previous delivery on 09/28/2017 at 38-6/7 weeks gestational age after 8 hours of labor7 lbs. 10 oz. male infant born via vacuum extraction delivery vaginally. She had an epidural for labor analgesia. She delivered at [facility]. Child's name is Juan Luis Tee. She is had 2 miscarriages, first trimester, 2017 and 02/14/2019. These were treated conservatively and she passed them naturally. No abnormal Pap smears or STI's noted in the past. history: Patient was first seen for this on 04/10/2019 at 13 weeks gestational age. She did have an ultrasound prior to that date on 2018 at which time babies were found to be in the 6+ week gestational age category. She's had multiple ultrasounds during the course of . All ultrasounds of [place]azar well-being and normal growth. Left twin is considered twin B and is smaller than the right twin. Biophysical profiles have been 8/8 throughout the assessment. Patient had her T dap immunization on 2019. She is rubella immune. She had hepatitis A vaccinations July 11, 2007. Hepatitis B immunization in September 1994. She had her meningococcal immunization on 09/15/2005. Patient's weight gain during the course of has been from 8 pregravid weight of 159 pounds to await the 183 pounds a 24 pound increase. Her vital signs were stable throughout the course. Fundal height growth has been acceptable for a twin gestation. Patient desires epidural in labor and delivery. She is hypothyroid and is on levothyroxine. Her levels have been normal throughout the . He plans to breast-feed. [place] depression screening score on 10/01/2019 was 0 /30. She had RhoGAM during the course of the . Last ultrasound done 2 days ago showed babies in a vertex-vertex presentation Laboratory testing and shows blood to be a negative with a negative and by screen. First hemoglobin was 12.6 g/dL and platelets 249,000. She is rubella immune. RPR is nonreactive. Urine culture was negative. Hepatitis B surface antigen and HIV assays were both negative. Chlamydia and gonorrhea tests were both negative. Second trimester testing showed hemoglobin 12.2 g/dL. Platelets are 182,000. One-hour GTT was normal at 116 mg/dL. RPR and 12/10/2019 was negative. Group B strep screen was negative. Free T4 done 2018 was normal at 1.20. Allergies: 1. Bee sting 2. Lactose no prep 3. Gluten Medications: 1. vitamins daily 2. Levothyroxine 50 g per day 3. Folic acid 1 mg per day and 4. Calcium tablets daily Past medical history: 1. Miscarriage 2018 2. Vaginal delivery 1 09/28/2014 3.? Celiac disorder 4. Acne 5. Thyroid isn't on medications 6. Infertility treated with medications Past surgical history: 1. Tonsillectomy 2012 2. Oral surgery 2006 Family history: Mother and father alive and well. One brother with allergies. Maternal grandmother is secondary to stroke. Maternal grandfather alive with some heart disease. Paternal grandmother with heart disease and rheumatoid arthritis. Paternal grandfather alive and well but has had prostate cancer. No anesthesia, bleeding, blood clotting problems noted in the family. Social history: Patient is . is Vimal. 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 She does not use any significant most alcohol, drugs or tobacco. Review of systems: In general patient has no complaints. Babies have been active. She is carey but is not feeling any significant discomfort with them. Skin: Negative Lungs: No infectious symptoms or shortness of breath Cardiovascular: No chest pain or exercise intolerance Breasts: No lumps, changes in size, pain, dimpling, discharge or axillary or supraclavicular concerns. Dissociated . GI: Negative : changes. Musculoskeletal: Negative Neurological: Negative In general the patient is well-developed, well-nourished, pleasant female of stated age in no acute distress. On evaluation on 02/05/2020 blood pressure 116/78. Weight was 183 pounds with pregravid weight of 159 pounds. Height is 5 feet 8 inches. Fundal height is 43.5 cm. Skin is warm dry without lesions. HEENT, neck and back within normal limits. Lungs are clear with good breath sounds in all lung spence. Cardiovascular exam shows regular and rhythm without murmurs. Breast exam is deferred having been done at first medical visit and found to be normal is not repeated at this time. Abdomen is gravid with fundal height of 43.5 cm. Genital per digital exam as described above.. Extremities and neurological exam are grossly within normal limits. - Related Data Allergies/Adverse Reactions: Allergies Allergy/AdvReac Type Severity Reaction Status Date / Time gluten Allergy Stomach Verified 02/05/20 08:30 Upset lactose AdvReac Stomach Verified 02/05/20 08:30 Ache Home Medications: Home Meds Calcium Carbonate [Calcium] 500 mg PO DAILY 02/05/20 [History] Folic Acid 1 ng PO DAILY 02/05/20 [History] Levothyroxine [Synthroid] 50 mcg PO DAILY 02/05/20 [History] Prenat 115/Iron Fum/Folic/Dss [ 19 Tablet] 1 tab PO DAILY 02/05/20 [ History] Past Medical History Cardiovascular History: Reports: None Respiratory History: Reports: None Gastrointestinal History: Reports: None, 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: Endocrine/Metabolic History: Reports: Hypothyroidism Oncologic (Cancer) History: Reports: None - Past Surgical History HEENT Surgical History: Reports: Oral Surgery, Tonsillectomy Social & Family History - Family History Family Medical History: Noncontributory - Tobacco Use Smoking Status *Q: Never Smoker Second Hand Smoke Exposure: No - Recreational Drug Use Recreational Drug Use: No H&P Review of Systems - Review of Systems: Review Of Systems: See Below L&D Exam - Exam Exam: See Below - Vital Signs Vital Signs: Last Vital Signs Temp 37.3 C 02/05/20 08:30 Pulse 88 02/05/20 08:30 Resp 16 02/05/20 08:30 BP 125/87 02/05/20 08:30 Pulse Ox 99 02/05/20 08:30 Weight: 83.416 kg - Patient Data Lab Results Last 24 hrs: Laboratory Results - last 24 hr 02/05/20 02/05/20 Range/Units 08:50 08:50 WBC 9.85 (3.98-10.04) K/mm3 RBC 4.12 (3.98-5.22) M/mm3 Hgb 13.2 (11.2-15.7) gm/dl Hct 38.8 (34.1-44.9) % MCV 94.2 (79.4-94.8) fl MCH 32.0 (25.6-32.2) pg MCHC 34.0 (32.2-35.5) g/dl RDW Std Deviation 46.5 H (36.4-46.3) fL Plt Count 193 (182-369) K/mm3 MPV 11.4 (9.4-12.3) fl Neut % (Auto) 66.0 (34.0-71.1) % Lymph % (Auto) 25.7 (19.3-51.7) % [place] % (Auto) 7.1 (4.7-12.5) % Eos % (Auto) 0.5 L (0.7-5.8) Baso % (Auto) 0.2 (0.1-1.2) % Neut # (Auto) 6.50 H (1.56-6.13) K/mm3 Lymph # (Auto) 2.53 (1.18-3.74) K/mm3 [place] # (Auto) 0.70 H (0.24-0.36) K/mm3 Eos # (Auto) 0.05 (0.04-0.36) K/mm3 Baso # (Auto) 0.02 (0.01-0.08) K/mm3 Blood Type A NEGATIVE Gel Antibody Screen Positive Result Diagrams: 02/05/20 08:50 Problem List Initiated/Reviewed/Updated: Yes Orders Last 24hrs: Active Orders 24 hr Category Date Time Status Patient Status [ADT] Routine ADT 02/05/20 08:30 Active Activity as Tolerated [RC] PFP Care 02/05/20 08:30 Active Communication Order [RC] ASDIRECTED Care 02/05/20 08:30 Active Communication Order [RC] ASDIRECTED Care 02/05/20 09:32 Active Cooling Warming Measures [RC] ASDIRECTED Care 02/05/20 09:32 Active Heart Tones [RC] ASDIRECTED Care 02/05/20 08:31 Active Non Stress Test [RC] PER UNIT ROUTINE Care 02/05/20 08:30 Active Notify Provider [RC] ASDIRECTED Care 02/05/20 09:32 Active Notify Provider [RC] PFP Care 02/05/20 08:30 Active Notify Provider [RC] PRN Care 02/05/20 08:30 Active Oxygen Therapy [RC] ASDIRECTED Care 02/05/20 09:32 Active Peripheral IV Care [RC] . DIRECTED Care 02/05/20 08:31 Active Pulse Oximetry [RC] ASDIRECTED Care 02/05/20 09:32 Active Vital Signs [RC] PER UNIT ROUTINE Care 02/05/20 08:30 Active Vital Signs [RC] Q1H Care 02/05/20 09:32 Active Regular Diet [DIET] Diet 02/05/20 Lunch Active ANTIBODY IDENTIFICATION [BBK] Stat Lab 02/05/20 08:50 Results RAPID PLASMA REAGIN,RPR [CHEM] Routine Lab 02/05/20 08:50 Received TYPE AND SCREEN [BBK] Stat Lab 02/05/20 08:50 Results Bupivacaine/fentaNYL/NS [fentaNYL/Bupivacaine/NS 2 MCG- Med 02/05/20 09:32 Active 0.125% 100 ML] 100 ml EPIDUR CONTINUOUS PRN Lactated Ringers [Ringers, Lactated] 1,000 ml Med 02/05/20 08:30 Active IV ASDIRECTED Nalbuphine [Nubain] Med 02/05/20 08:30 Active 10 mg IVPUSH Q2H PRN Ondansetron [Zofran] Med 02/05/20 08:30 Active 4 mg IVPUSH Q4H PRN Oxytocin/Lactated Ringers [Pitocin in LR 10 Units/1,000 Med 02/05/20 08:30 Active ML] 10 unit in 1,000 ml IV .CONTINUOUS Sodium Chloride 0.9% [Saline Flush] Med 02/05/20 08:30 Active 10 ml FLUSH ASDIRECTED PRN diphenhydrAMINE [Benadryl] Med 02/05/20 09:32 Active 25 mg IVPUSH Q6H PRN ePHEDrine [ePHEDrine sulfate] Med 02/05/20 09:32 Active 5 mg IVPUSH ASDIRECTED PRN fentaNYL [Sublimaze] Med 02/05/20 09:32 Active 100 mcg EPIDUR Q3H PRN Electronic Heart Tones Ext w TOCO [WOMSER] Oth 02/05/20 08:30 Ordered Routine Electronic Heart Tones Internal [WOMSER] Per Unit Oth 02/05/20 08:30 Ordered Routine Peripheral IV Insertion Adult [OM.PC] Routine Oth 02/05/20 08:30 Ordered Resuscitation Status Routine Resus Stat 02/05/20 08:30 Ordered Medication Orders Diphenhydramine HCl (Benadryl) 25 mg IVPUSH Q6H PRN PRN Reason: Itching Ephedrine Sulfate (Ephedrine Sulfate) 5 mg IVPUSH ASDIRECTED PRN PRN Reason: HYPOTENTSION Fentanyl (Sublimaze) 100 mcg EPIDUR Q3H PRN PRN Reason: Pain Fentanyl/Bupivacaine HCl (Fentanyl/Bupivacaine/Ns 2 Mcg-0.125% 100 Ml) 100 ml EPIDUR CONTINUOUS PRN PRN Reason: Pain Lactated Ringer's (Ringers, Lactated) 1,000 mls @ 100 mls/hr IV ASDIRECTED YOSSI Last Admin: 02/05/20 10:12 Dose: 999 mls/hr Infusion: 02/05/20 10:12 Dose: 999 mls/hr Admin: 02/05/20 08:54 Dose: 100 mls/hr Oxytocin/Lactated Ringer's (Pitocin In Lr 10 Units/1,000 Ml) 10 unit in 1,000 mls @ 500 mls/hr IV .CONTINUOUS YOSSI Nalbuphine HCl (Nubain) 10 mg IVPUSH Q2H PRN PRN Reason: Pain Ondansetron HCl (Zofran) 4 mg IVPUSH Q4H PRN PRN Reason: Nausea/Vomiting Sodium Chloride (Saline Flush) 10 ml FLUSH ASDIRECTED PRN PRN Reason: Keep Vein Open Assessment/Plan Comment:: 1. Diamniotic, dichorionic twin gestation at 36 and 47 weeks gestational age in early labor with advanced cervical dilation. Babies in a vertex, vertex presentation. 2.B strep screen negative 3. Patient plans to breast-feed 4. Patient desires epidural in labor and delivery 5. Have discussed with patient the process of twin gestation. We'll plan for vaginal for both babies if possible. Patient delivered in the room. She'll have an epidural prior to delivery. She'll have labs and consent done before delivery. Anesthesia and surgery will be made aware of her presence in L&D. Plan: 1. Anticipate vaginal delivery. Both twins 2. Will be prepared for emergency are in section if needed. 3. Support breast-feeding plan 4. RPR and CBC upon admission along with labs 5. Consent for section. 6. Routine labor care otherwise with near continuous monitoring.
--- NOTE | 2020-02-05 15:02 | PCM.SN.2 ---
- Free Text/Narrative Note: Delivery note: Latonia is a 29-year-old 4 para 1021 white female at 36 and 47 weeks gestational age with an JOSEY of 02/29/2020 who is admitted with a dichorionic, diamniotic twin gestation, contractions and advanced cervical dilation of 7 cm. Patient was seen in clinic today, had reported decreased activity. 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 Patient's cervix is 7 cm dilated, 90% effaced, -1 station, anterior, very soft, bulging bag of kirk, vertex presentation of the presenting twin. The patient underwent artificial rupture membranes augmentation of labor. Approximately 2 hours later with less than optimal contraction she was started on Pitocin augmentation. With this patient achieved complete cervical dilation by approximately 1400 hrs. She was moved to the room and began pushing. She had an epidural in place for labor analgesia. Monitoring of the babies and the contractions continued. At 1415 hrs. on 02/05/2020 she delivered a viable male in a direct occiput anterior position. The baby was placed on mom's abdomen. Nose and mouth were bulb suctioned. Baby was dried with a warm blanket. The cord was allowed to pulsate for 30-60 seconds and then was clamped 2 and cut by the baby's father Vimal Cox. The baby was taken to the warmer to the attending escrow manager Dr. Sifuentes. Cord blood was obtained. A plastic umbilical cord clamp was placed on the first twin's cord for identification purposes. Patient was rechecked and second twin was noted to be in a double footling breech presentation with feet down in the vagina. The membranes appeared to have ruptured already. The baby's legs were brought forth into the canal and using a complete breech extraction technique the baby was delivered. The baby was delivered to the level of the scapula. At this time both arms were swept down and using gentle flexion of the head the baby's head the baby delivered without problems. Twin B was female and the delivery time was 1418 hrs. on 02/05/2020. The baby was placed on mom's abdomen and was dried with warm blanket. His mouth were bulb suctioned. IV Pitocin was increased to 500 mL/h to facilitate an increase in uterine tone and decrease likelihood of bleeding. Cord blood from twin B was then obtained. Patient is noted to have a second-degree perineal laceration. This was repaired with 3-0 Monocryl suture using the epidural analgesia for perineal anesthesia. Patient tolerated this well. Epidural analgesia was used for perineal anesthesia and patient tolerated the repair well. The placenta delivered in a Jose presentation. Appeared intact, complete and consistent with diamniotic, dichorionic twin gestation placenta. It was sent for pathology evaluation. Estimated blood loss: 200 mL. Condition: Good Patient plans to breast-feed.
[2020-02-05] MEDS ORDERED: Witch Hazel Medicated Pads 40/Jar TOP PRN (15:52)
[2020-02-05] MEDS ORDERED: Benzocaine/Menthol 20%-0.5% Spray 56 GM Canister TOP PRN (15:52)
[2020-02-05] MEDS ORDERED: Docusate Sodium 100 MG Cap PO PRN (15:52)
[2020-02-05] MEDS: Ibuprofen 600 MG Tab PO PRN ×2 (19:31→23:48)
[2020-02-05] MEDS: Acetaminophen 325 MG Tab PO PRN (20:42)
[2020-02-06] MEDS: Ibuprofen 600 MG Tab PO PRN ×4 (05:01→21:33)
--- NOTE | 2020-02-06 07:35 | PCM.SN.2 ---
- Free Text/Narrative Note: note: day #1-status post twin delivery Patient is doing well in the period. Minimal lochia, voiding well, ambulated without problems. Nursing without concerns. Patient is afebrile, vital signs are stable Abdomen is flat, soft, uterus is below the umbilicus and is firm and nontender. Legs are nontender. Assessment: recovery going well. Plan: Routine care. Patient be discharged home within the next 24-48 hours.
[2020-02-06] MEDS: Levothyroxine 50 MCG Tab PO SCH (08:35)
[2020-02-06] MEDS: Acetaminophen 325 MG Tab PO PRN (08:35)
[2020-02-06] MEDS: Prenatal Multivitamin with Calcium/Folic Acid/Iron Tab PO SCH (08:35)
--- NOTE | 2020-02-06 11:00 | PCM48HPAN ---
Post Anesthesia Note - EVALUATION WITHIN 48HRS OF ANESTHETIC Vital Signs in Normal Range: Yes Patient Participated in Evaluation: Yes Respiratory Function Stable: Yes Airway Patent: Yes Cardiovascular Function Stable: Yes Hydration Status Stable: Yes Pain Control Satisfactory: Yes Nausea and Vomiting Control Satisfactory: Yes Mental Status Recovered: Yes Vital Signs: Last Vital Signs Temp 36.7 C 02/06/20 03:00 Pulse 72 02/06/20 03:00 Resp 14 02/06/20 03:00 BP 86/47 L 02/06/20 03:00 Pulse Ox 99 02/06/20 03:00
--- NOTE | 2020-02-07 06:55 | PCM.DCSUM1 ---
Discharge Summary - Hospital Course Free Text/Narrative:: [facility] Provider Simple Note Patient Name: LEONEL EVANS Date of : 89 Patient Status: Inpatient Attending Provider: Jim Viramontes Date: 02/05/20 14:51 Initialization Date: 02/05/20 14:51 - Free Text/Narrative Note: Delivery note: Leonel is a 29-year-old 4 para 1021 white female at 36 and 47 weeks gestational age with an JOSEY of 02/29/2020 who is admitted with a dichorionic, diamniotic twin gestation, contractions and advanced cervical dilation of 7 cm. Patient was seen in clinic today, had reported decreased activity. 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 Patient's cervix is 7 cm dilated, 90% effaced, -1 station, anterior, very soft, bulging bag of kirk, vertex presentation of the presenting twin. The patient underwent artificial rupture membranes augmentation of labor. Approximately 2 hours later with less than optimal contraction she was started on Pitocin augmentation. With this patient achieved complete cervical dilation by approximately 1400 hrs. She was moved to the room and began pushing. She had an epidural in place for labor analgesia. Monitoring of the babies and the contractions continued. At 1415 hrs. on 02/05/2020 she delivered a viable male infant in a direct occiput anterior position. The baby was placed on mom's abdomen. Nose and mouth were bulb suctioned. Baby was dried with a warm blanket. The cord was allowed to pulsate for 30-60 seconds and then was clamped 2 and cut by the baby's father Vimal Evans. The baby was taken to the warmer to the attending engineering analyst Dr. Sifuentes. Cord blood was obtained. A plastic umbilical cord clamp was placed on the first twin's cord for identification purposes. Patient was rechecked and second twin was noted to be in a double footling breech presentation with feet down in the vagina. The membranes appeared to have ruptured already. The baby's legs were brought forth into the canal and using a complete breech extraction technique the baby was delivered. The baby was delivered to the level of the scapula. At this time both arms were swept down and using gentle flexion of the head the baby's head the baby delivered without problems. Twin B was female and the delivery time was 1418 hrs. on 02/05/2020. The baby was placed on mom's abdomen and was dried with warm blanket. His mouth were bulb suctioned. IV Pitocin was increased to 500 mL/h to facilitate an increase in uterine tone and decrease likelihood of bleeding. Cord blood from twin B was then obtained. Patient is noted to have a second-degree perineal laceration. This was repaired with 3-0 Monocryl suture using the epidural analgesia for perineal anesthesia. Patient tolerated this well. Epidural analgesia was used for perineal anesthesia and patient tolerated the repair well. The placenta delivered in a Jose presentation. Appeared intact, complete and consistent with diamniotic, dichorionic twin gestation placenta. It was sent for pathology evaluation. Estimated blood loss: 200 mL. Condition: Good Patient plans to breast-feed. HPI Initial Comments: [facility] Provider Simple Note Patient Name: LEONEL EVANS Date of : [birth year] Patient Status: Inpatient Attending Provider: Jim Viramontes Date: 02/05/20 14:51 Initialization Date: 02/05/20 14:51 - Free Text/Narrative Note: Delivery note: Leonel is a 29-year-old 4 para 1021 white female at 36 and 47 weeks gestational age with an JOSEY of 02/29/2020 who is admitted with a dichorionic, diamniotic twin gestation, contractions and advanced cervical dilation of 7 cm. Patient was seen in clinic today, had reported decreased activity. 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 Patient's cervix is 7 cm dilated, 90% effaced, -1 station, anterior, very soft, bulging bag of kirk, vertex presentation of the presenting twin. The patient underwent artificial rupture membranes augmentation of labor. Approximately 2 hours later with less than optimal contraction she was started on Pitocin augmentation. With this patient achieved complete cervical dilation by approximately 1400 hrs. She was moved to the room and began pushing. She had an epidural in place for labor analgesia. Monitoring of the babies and the contractions continued. At 1415 hrs. on 02/05/2020 she delivered a viable male infant in a direct occiput anterior position. The baby was placed on mom's abdomen. Nose and mouth were bulb suctioned. Baby was dried with a warm blanket. The cord was allowed to pulsate for 30-60 seconds and then was clamped 2 and cut by the baby's father Vimal Evans. The baby was taken to the warmer to the attending engineering analyst Dr. Sifuentes. Cord blood was obtained. A plastic umbilical cord clamp was placed on the first twin's cord for identification purposes. Patient was rechecked and second twin was noted to be in a double footling breech presentation with feet down in the vagina. The membranes appeared to have ruptured already. The baby's legs were brought forth into the canal and using a complete breech extraction technique the baby was delivered. The baby was delivered to the level of the scapula. At this time both arms were swept down and using gentle flexion of the head the baby's head the baby delivered without problems. Twin B was female and the delivery time was 1418 hrs. on 02/05/2020. The baby was placed on mom's abdomen and was dried with warm blanket. His mouth were bulb suctioned. IV Pitocin was increased to 500 mL/h to facilitate an increase in uterine tone and decrease likelihood of bleeding. Cord blood from twin B was then obtained. Patient is noted to have a second-degree perineal laceration. This was repaired with 3-0 Monocryl suture using the epidural analgesia for perineal anesthesia. Patient tolerated this well. Epidural analgesia was used for perineal anesthesia and patient tolerated the repair well. The placenta delivered in a Jose presentation. Appeared intact, complete and consistent with diamniotic, dichorionic twin gestation placenta. It was sent for pathology evaluation. Estimated blood loss: 200 mL. Condition: Good Patient plans to breast-feed. Brief History: [facility] . Provider Simple Note. Patient Name : LEONEL EVANSMedical Record Number: [id number]. Date of : Patient Status: Inpatient. Attending Provider: Jim Viramontes FAccount Number: [id number]. Date: 02/05/20 14:51Initialization Date: 02/05/20 14:51. - Free Text/Narrative. Note: Delivery note: Leonel is a 29-year-old 4 para 1021 white female at 36 and 47 weeks gestational age with an JOSEY of 02/29/2020 who is admitted with a dichorionic, diamniotic twin gestation, contractions and advanced cervical dilation of 7 cm.Patient was seen in clinic today, had reported decreased activity. 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 Patient's cervix is 7 cm dilated, 90% effaced, -1 station, anterior, very soft, bulging bag of kirk, vertex presentation of the presenting twin. The patient underwent artificial rupture membranes augmentation of labor. Approximately 2 hours later with less than optimal contraction she was started on Pitocin augmentation. With this patient achieved complete cervical dilation by approximately 1400 hrs. She was moved to the room and began pushing. She had an epidural in place for labor analgesia. Monitoring of the babies and the contractions continued. At 1415 hrs. on 02/05/2020 she delivered a viable male in a direct occiput anterior position. The baby was placed on mom's abdomen. Nose and mouth were bulb suctioned. Baby was dried with a warm blanket. The cord was allowed to pulsate for 30-60 seconds and then was clamped 2 and cut by the baby's father Vimal Evans. The baby was taken to the warmer to the attending engineering analyst Dr. Sifuentes. Cord blood was obtained. A plastic umbilical cord clamp was placed on the first twin's cord for identification purposes. Patient was rechecked and second twin was noted to be in a double footling breech presentation with feet down in the vagina. The membranes appeared to have ruptured already. The baby's legs were brought forth into the canal and using a complete breech extraction technique the baby was delivered. The baby was delivered to the level of the scapula. At this time both arms were swept down and using gentle flexion of the head the baby's head the baby delivered without problems. Twin B was female and the delivery time was 1418 hrs. on 02/05/2020. The baby was placed on mom's abdomen and was dried with warm blanket. His mouth were bulb suctioned. IV Pitocin was increased to 500 mL/h to facilitate an increase in uterine tone and decrease likelihood of bleeding. Cord blood from twin B was then obtained. Patient is noted to have a second-degree perineal laceration. This was repaired with 3-0 Monocryl suture using the epidural analgesia for perineal anesthesia. Patient tolerated this well. Epidural analgesia was used for perineal anesthesia and patient tolerated the repair well. The placenta delivered in a Jose presentation. Appeared intact, complete and consistent with diamniotic, dichorionic twin gestation placenta. It was sent for pathology evaluation. Estimated blood loss: 200 mL. Condition: Good. Patient plans to breast-feed. Diagnosis: Stroke: No - Discharge Data Discharge Date: 02/07/20 Discharge Disposition: Home, Self-Care 01 Condition: Good - Referral to Home Health Primary Care Physician: Jim Viramontes MD - Discharge Diagnosis/Problem(s) (1) Twin SNOMED Code(s): 56615883 ICD Code: Z37.9 - OUTCOME OF DELIVERY, UNSPECIFIED Status: Acute Current Visit: Yes (2) Twin dichorionic diamniotic placenta SNOMED Code(s): 59667253 ICD Code: O30.049 - TWIN , DICHORIONIC/DIAMNIOTIC, UNSP TRIMESTER Status: Acute Current Visit: Yes (3) 36 weeks gestation of SNOMED Code(s): 89818536 ICD Code: Z3A.36 - 36 WEEKS GESTATION OF Status: Acute Current Visit: Yes - Patient Summary/Data Complications: none Consults: none Hospital Course: uneventful - Patient Instructions Diet: Usual Diet as Tolerated Driving: Do Not Drive (x48 hrs) Showering/Bathing: May Shower Notify Provider of: Fever, Increased Pain, Swelling and Redness, Drainage, Nausea and/or Vomiting - Discharge Plan *PRESCRIPTION DRUG MONITORING PROGRAM REVIEWED*: Not Applicable *COPY OF PRESCRIPTION DRUG MONITORING REPORT IN PATIENT GABRIELLA: Not Applicable Home Medications: Home Meds Calcium Carbonate [Calcium] 500 mg PO DAILY 02/05/20 [History] Folic Acid 1 ng PO DAILY 02/05/20 [History] Levothyroxine [Synthroid] 50 mcg PO DAILY 02/05/20 [History] Prenat 115/Iron Fum/Folic/Dss [ 19 Tablet] 1 tab PO DAILY 02/05/20 [ History] Acetaminophen [Tylenol] 650 mg PO Q6H PRN tablet 02/07/20 [Rx] Benzocaine/Menthol [Dermoplast Pain Relief [place]] 1 spray TOP ASDIRECTED PRN canister 02/07/20 [Rx] Docusate Sodium [Colace] 100 mg PO BID PRN cap 02/07/20 [Rx] Ibuprofen [Motrin] 600 mg PO Q4H PRN tablet 02/07/20 [Rx] Levothyroxine [Synthroid] 50 mcg PO DAILY tablet 02/07/20 [Rx] yamil Barnes [Tucks] 1 pad TOP ASDIRECTED PRN pad 02/07/20 [Rx] Referrals: Jim Viramontes MD [Primary Care Provider] - (Will call Sunday for appointment ) - Discharge Summary/Plan Comment DC Time >30 min.: No - Patient Data Vitals - Most Recent: Last Vital Signs Temp 98.1 F 02/07/20 03:06 Pulse 65 02/07/20 03:06 Resp 20 02/07/20 03:06 BP 114/67 02/07/20 03:06 Pulse Ox 94 L 02/07/20 03:06 Weight - Most Recent: 183 lb 14.4 oz I&O - Last 24 hours: Intake & Output 02/06/20 02/06/20 02/07/20 14:59 22:59 06:59 Intake Total 240 Balance 240 Lab Results - Last 24 hrs: Laboratory Results - last 24 hr 02/05/20 Range/Units 08:50 Antibody Identification Anti-D Med Orders - Current: Current Medications Acetaminophen (Tylenol) 650 mg PO Q4H PRN PRN Reason: mild pain or fever Last Admin: 02/06/20 08:35 Dose: 650 mg Benzocaine/Menthol (Dermoplast Pain Relief [place]) 0 gm TOP ASDIRECTED PRN PRN Reason: Perineal Comfort Measure Last Admin: 02/05/20 17:10 Dose: 1 can Docusate Sodium (Colace) 100 mg PO BID PRN PRN Reason: Constipation Last Admin: 02/06/20 21:34 Dose: 100 mg Ibuprofen (Motrin) 600 mg PO Q4H PRN PRN Reason: Mild pain or fever Last Admin: 02/06/20 21:33 Dose: 600 mg Levothyroxine Sodium (Synthroid) 50 mcg PO DAILY YOSSI Last Admin: 02/06/20 08:35 Dose: Not Given Prenat Multivit/Pelt Grader/Iron/Folic Ac ( Plus Iron) 1 each PO DAILY YOSSI Last Admin: 02/06/20 08:35 Dose: Not Given Yamil Barnes (Tucks) 1 pad TOP ASDIRECTED PRN PRN Reason: Perineal Comfort Measure Last Admin: 02/05/20 17:10 Dose: 1 jar Discontinued Medications Bupivacaine HCl (Sensorcaine-Mpf 0.25%) 10 ml .ROUTE .STK-MED ONE Stop: 02/05/20 00:01 Citric Acid/Sodium Citrate (Bicitra Solution) 30 ml PO ONETIME ONE Stop: 02/05/20 08:37 Last Admin: 02/06/20 02:00 Dose: Not Given Diphenhydramine HCl (Benadryl) 25 mg IVPUSH Q6H PRN PRN Reason: Itching Ephedrine Sulfate (Ephedrine Sulfate) 5 mg IVPUSH ASDIRECTED PRN PRN Reason: HYPOTENTSION Fentanyl (Sublimaze) 100 mcg EPIDUR Q3H PRN PRN Reason: Pain Fentanyl/Bupivacaine HCl (Fentanyl/Bupivacaine/Ns 2 Mcg-0.125% 100 Ml) 100 ml EPIDUR CONTINUOUS PRN PRN Reason: Pain Lactated Ringer's (Ringers, Lactated) 1,000 mls @ 100 mls/hr IV ASDIRECTED YOSSI Last Admin: 02/05/20 11:38 Dose: 999 mls/hr Oxytocin/Lactated Ringer's (Pitocin In Lr 10 Units/1,000 Ml) 10 unit in 1,000 mls @ 500 mls/hr IV .CONTINUOUS YOSSI Oxytocin/Lactated Ringer's (Pitocin In Lr 10 Units/1,000 Ml) 10 unit in 1,000 mls @ 12 mls/hr IV TITRATE YOSSI; Protocol Last Titration: 02/05/20 13:00 Dose: 4 munits/min, 24 mls/hr Lidocaine HCl (Xylocaine 1%) 50 ml INJECT ONETIME ONE Stop: 02/05/20 08:31 Last Admin: 02/06/20 02:00 Dose: Not Given Metoclopramide HCl (Reglan) 10 mg IVPUSH ONETIME ONE Stop: 02/05/20 08:37 Last Admin: 02/06/20 02:01 Dose: Not Given Nalbuphine HCl (Nubain) 10 mg IVPUSH Q2H PRN PRN Reason: Pain Ondansetron HCl (Zofran) 4 mg IVPUSH Q4H PRN PRN Reason: Nausea/Vomiting Sodium Chloride (Saline Flush) 10 ml FLUSH ASDIRECTED PRN PRN Reason: Keep Vein Open Tranexamic Acid (Cyklokapron) Confirm Administered Dose 1,000 mg .ROUTE .R[employer] ONE Stop: 02/05/20 13:45 Last Admin: 02/06/20 02:01 Dose: Not Given
[2020-02-07] MEDS: Ibuprofen 600 MG Tab PO PRN (09:00)
[2020-02-07] MEDS: Levothyroxine 50 MCG Tab PO SCH (19:39)
[2020-02-07] MEDS: Prenatal Multivitamin with Calcium/Folic Acid/Iron Tab PO SCH (19:39)
== END 2020-02-07 15:15 | disposition home or self-care (01) | DRG 560 ==
LOC: JD.OB 08:23 → OBSVTOIN 14:15 → JD.OB 14:15
PROVIDERS: ADMIT Obstetrics & Gynecology; ATTEND Obstetrics & Gynecology
PROC: 10E0XZZ Delivery of Products of Conception, External Approach (ICD-10-PCS; principal; 2020-02-05)
PROC: 10907ZC Drainage of Amniotic Fluid, Therapeutic from Products of Conception, Via Natural or Artificial Opening (ICD-10-PCS; 2020-02-05)
PROC: 0KQM0ZZ Repair Perineum Muscle, Open Approach (ICD-10-PCS; 2020-02-05)
PROC: 3E0R3BZ Introduction of Anesthetic Agent into Spinal Canal, Percutaneous Approach (ICD-10-PCS; 2020-02-05)
PROC: 00HU33Z Insertion of Infusion Device into Spinal Canal, Percutaneous Approach (ICD-10-PCS; 2020-02-05)
PROC: 3E0334Z Introduction of Serum, Toxoid and Vaccine into Peripheral Vein, Percutaneous Approach (ICD-10-PCS; 2020-02-06)
DX: O32.8XX1 Maternal care for other malpresentation of fetus, fetus 1 (principal); O30.043 Twin pregnancy, dichorionic/diamniotic, third trimester; Z37.2 Twins, both liveborn; O99.284 Endocrine, nutritional and metabolic diseases complicating childbirth; E03.9 Hypothyroidism, unspecified; O26.893 Other specified pregnancy related conditions, third trimester; O70.1 Second degree perineal laceration during delivery; Z3A.36 36 weeks gestation of pregnancy; Z67.11 Type A blood, Rh negative; Z79.890 Hormone replacement therapy
CPT/HCPCS: 36415; 51702; 59025; 59409; 85025; 85461; 86592; 86850; 86870; 86900; 86901; A9270-GY; J2590; J2790; J3490; J7120